=== PATIENT | male | born 1985 | race Caucasian/White ===

== ENCOUNTER 2020-12-21 17:44 | Emergency (ER) | payer OTHER ==
[~2020-12-21 17:44] MED LIST: ACETAMINOPHEN500 M1 PO; BACLOFEN 10MG T10 MG PO; BENTYL10 MG PO; BUSPAR5 MG PO; BUSPIRONE HCL15 MG PO; CIPRO500 MG PO; CLARITIN10 MG PO; FENTANYL 110 MCG/11 PF; FLEXERIL5 MG PO; LACTINEX1 EACH PO; MELATONIN5 M2 PO; MI-ACID80 MG PO; NORCO 5-325 TA1 EACH PO; OXYCODONE HCL10 MG PO; PERCOCET 7.5-31 EACH PO; PHENERGAN25 M1 PO; PHENERGAN25 MG PR; PRILOSEC20 MG PO; PROBIOTIC1 EAC1 PO; PROTONIX 40MG T40 MG PO; SEROQUEL 25MG T25 MG PO; TRAZODONE 50MG50 MG PO; VISTARIL25 MG PO; ZOFRAN4 MG PO
[2020-12-21 19:30] LABS: BASOPHIL 0.8 % (0-2); EOSINOPHIL 0.3 % (0-5); HCT 51.6 % (42.0-52.0); HGB 18.4 g/dl (13.2-18.0); LYMPHOCYTE 10.7 % (15-48); MCH 31.4 pg (25.0-31.0); MCHC 35.7 g/dL (32.0-36.0); MCV 88.1 fL (78.0-100.0); MONOCYTE 10.1 % (0-12); MPV 9.1 fL (6.0-9.5); NEUTROPHIL 77.4 % (41-80); NRBC 0; PLT 629 K/uL (150-400); RBC 5.86 M/uL (4.70-6.00); RDW 13.6 % (11.5-14.0); WBC 21.1 K/uL (4.0-10.5)
[2020-12-21 19:42] LABS: ALBUMIN 4.2 g/dL (3.4-5.0); BILIRUBIN - TOTAL 0.7 mg/dL (0.2-1.0); BUN/CREAT RATIO (CALC) 31.7 RATIO; CREATININE 1.64 mg/dL (0.67-1.17); GLOBULIN (CALCULATION) 4.4 g/dL; TOTAL PROTEIN 8.6 g/dL (6.4-8.2)
[2020-12-21 19:45] LABS: POTASSIUM 1.8 mmol/L (3.5-5.1)
[2020-12-21 20:14] LABS: LACTIC ACID 5.4 mmol/L (0.4-1.9)
[2020-12-21 20:34] LABS: CORONAVIRUS 2019 SARS-COV-2 NEGATIVE (NEGATIVE); INFLUENZA A NAA NEGATIVE (NEGATIVE)
[2020-12-21 21:35] LABS: BILIRUBIN NEGATIVE (NEGATIVE); BLOOD NEGATIVE Ery/uL (NEGATIVE); CLARITY CLEAR (CLEAR); COLOR YELLOW (YELLOW); GLUCOSE (U) TRACE mg/dL (NORMAL); LEUKOCYTES NEGATIVE Leu/uL (NEGATIVE); NITRITE NEGATIVE (NEGATIVE); PROTEIN TRACE (LOW) mg/dL (NEGATIVE); UROBILINOGEN 0.2 mg/dL (0.2-1.0); pH 5.5 (5.0-9.0)
[2020-12-21 21:38] LABS: SQUAMOUS EPITHELIAL CELLS RARE
== END 2020-12-22 04:49 | disposition other institution (70) ==
LOC: FER 17:44
PROVIDERS: Emergency Medicine
DX: R10.84 Generalized abdominal pain (principal); E87.6 Hypokalemia; D72.829 Elevated white blood cell count, unspecified; M54.9 Dorsalgia, unspecified; G89.29 Other chronic pain; J45.909 Unspecified asthma, uncomplicated; F17.210 Nicotine dependence, cigarettes, uncomplicated; Z88.8 Allergy status to other drugs, medicaments and biological substances; Z79.891 Long term (current) use of opiate analgesic; Z20.822 Contact with and (suspected) exposure to COVID-19
CPT/HCPCS: 36415; 71045; 80053; 81001; 83605; 83690; 85025; 87040; J2060; J2270; J2405; J2543; J3480; J7030; Q9967; U0002

== ENCOUNTER 2021-03-08 13:03 | Emergency (ER) | payer OTHER ==
[2021-03-08 13:41] LABS: BASOPHIL 0.9 % (0-2); EOSINOPHIL 1.6 % (0-5); HCT 46.2 % (42.0-52.0); HGB 16.2 g/dl (13.2-18.0); LYMPHOCYTE 17.7 % (15-48); MCH 32.8 pg (25.0-31.0); MCHC 35.1 g/dL (32.0-36.0); MCV 93.5 fL (78.0-100.0); MONOCYTE 8.9 % (0-12); MPV 8.9 fL (6.0-9.5); NEUTROPHIL 70.4 % (41-80); NRBC 0; PLT 545 K/uL (150-400); RBC 4.94 M/uL (4.70-6.00); RDW 14.2 % (11.5-14.0); WBC 20.3 K/uL (4.0-10.5)
[2021-03-08 14:05] LABS: BILIRUBIN - TOTAL 0.4 mg/dL (0.2-1.0); CREATININE 0.85 mg/dL (0.67-1.17); GLOBULIN (CALCULATION) 3.4 g/dL; POTASSIUM 3.4 mmol/L (3.5-5.1); TOTAL PROTEIN 7.4 g/dL (6.4-8.2)
[2021-03-08 14:11] LABS: LACTIC ACID 1.6 mmol/L (0.4-1.9)
[2021-03-08 14:41] LABS: BILIRUBIN NEGATIVE (NEGATIVE); BLOOD NEGATIVE Ery/uL (NEGATIVE); CLARITY HAZY (CLEAR); COLOR YELLOW (YELLOW); GLUCOSE (U) NORMAL (NORMAL); LEUKOCYTES NEGATIVE Leu/uL (NEGATIVE); NITRITE NEGATIVE (NEGATIVE); PROTEIN NEGATIVE (NEGATIVE); SPECIFIC GRAVITY 1.015 (1.001-1.030); UROBILINOGEN 0.2 mg/dL (0.2-1.0)
== END 2021-03-08 23:39 | disposition left against medical advice (07) ==
LOC: FER 13:03
PROVIDERS: Nurse Practitioner Family
DX: K29.70 Gastritis, unspecified, without bleeding (principal); K86.3 Pseudocyst of pancreas; I10 Essential (primary) hypertension; J45.909 Unspecified asthma, uncomplicated; F17.210 Nicotine dependence, cigarettes, uncomplicated; Z87.19 Personal history of other diseases of the digestive system; Z88.8 Allergy status to other drugs, medicaments and biological substances; Z88.5 Allergy status to narcotic agent; Z53.8 Procedure and treatment not carried out for other reasons; Z20.822 Contact with and (suspected) exposure to COVID-19
CPT/HCPCS: 36415; 80053; 81003; 82150; 83605; 83690; 84145; 85025; 87040; 93005; C9113; J1170; J2405; J2543; J7030; Q9967; U0002

== ENCOUNTER 2021-03-10 14:42 | Emergency (ER) | payer OTHER ==
[2021-03-10 15:46] LABS: BILIRUBIN NEGATIVE (NEGATIVE); BLOOD NEGATIVE Ery/uL (NEGATIVE); CLARITY CLEAR (CLEAR); COLOR YELLOW (YELLOW); GLUCOSE (U) NORMAL (NORMAL); LEUKOCYTES NEGATIVE Leu/uL (NEGATIVE); NITRITE NEGATIVE (NEGATIVE); PROTEIN NEGATIVE (NEGATIVE); SPECIFIC GRAVITY <=1.005 (1.001-1.030); UROBILINOGEN 0.2 mg/dL (0.2-1.0); pH 6.5 (5.0-9.0)
[2021-03-10 15:46] LABS: BASOPHIL 1.4 % (0-2); EOSINOPHIL 3.9 % (0-5); HCT 43.5 % (42.0-52.0); HGB 15.2 g/dl (13.2-18.0); LYMPHOCYTE 24.1 % (15-48); MCH 33.1 pg (25.0-31.0); MCHC 34.9 g/dL (32.0-36.0); MCV 94.8 fL (78.0-100.0); MONOCYTE 9.6 % (0-12); NEUTROPHIL 60.7 % (41-80); NRBC 0; PLT 540 K/uL (150-400); RBC 4.59 M/uL (4.70-6.00); RDW 13.8 % (11.5-14.0)
[2021-03-10 16:28] LABS: ALBUMIN 3.7 g/dL (3.4-5.0); BILIRUBIN - TOTAL 0.4 mg/dL (0.2-1.0); BUN/CREAT RATIO (CALC) 12.9 RATIO; CREATININE 0.93 mg/dL (0.67-1.17); GLOBULIN (CALCULATION) 3.7 g/dL; LACTIC ACID 0.9 mmol/L (0.4-1.9); POTASSIUM 2.9 mmol/L (3.5-5.1); TOTAL PROTEIN 7.4 g/dL (6.4-8.2)
[2021-03-11 22:26] LABS: BASOPHIL 1.1 % (0-2); HCT 39.3 % (42.0-52.0); HGB 13.6 g/dl (13.2-18.0); LYMPHOCYTE 28.9 % (15-48); MCH 33.3 pg (25.0-31.0); MCHC 34.6 g/dL (32.0-36.0); MCV 96.3 fL (78.0-100.0); MONOCYTE 8.4 % (0-12); MPV 8.9 fL (6.0-9.5); NEUTROPHIL 57.4 % (41-80); NRBC 0; PLT 472 K/uL (150-400); RBC 4.08 M/uL (4.70-6.00); RDW 13.7 % (11.5-14.0); WBC 13.2 K/uL (4.0-10.5)
[2021-03-11 22:47] LABS: ALBUMIN 3.5 g/dL (3.4-5.0); BILIRUBIN - TOTAL 0.5 mg/dL (0.2-1.0); BUN/CREAT RATIO (CALC) 10.7 RATIO; CREATININE 0.84 mg/dL (0.67-1.17); GLOBULIN (CALCULATION) 3.2 g/dL; POTASSIUM 3.8 mmol/L (3.5-5.1); TOTAL PROTEIN 6.7 g/dL (6.4-8.2)
[2021-03-11 22:55] LABS: LACTIC ACID 0.7 mmol/L (0.4-1.9)
[2021-03-12 09:44] LABS: EOSINOPHIL 3.9 % (0-5); HCT 37.7 % (42.0-52.0); HGB 12.7 g/dl (13.2-18.0); LYMPHOCYTE 29.1 % (15-48); MCH 32.6 pg (25.0-31.0); MCHC 33.7 g/dL (32.0-36.0); MCV 96.7 fL (78.0-100.0); MONOCYTE 9.6 % (0-12); MPV 8.9 fL (6.0-9.5); NEUTROPHIL 56.1 % (41-80); NRBC 0; PLT 475 K/uL (150-400); RDW 13.8 % (11.5-14.0); WBC 14.4 K/uL (4.0-10.5)
[2021-03-12 10:02] LABS: ALBUMIN 3.3 g/dL (3.4-5.0); BILIRUBIN - TOTAL 0.3 mg/dL (0.2-1.0); BUN/CREAT RATIO (CALC) 13.8 RATIO; CREATININE 0.8 mg/dL (0.67-1.17); POTASSIUM 4.2 mmol/L (3.5-5.1); TOTAL PROTEIN 6.3 g/dL (6.4-8.2)
[2021-03-12 10:09] LABS: LACTIC ACID 1.5 mmol/L (0.4-1.9)
== END 2021-03-13 12:00 | disposition other institution (70) ==
LOC: FER 14:42
PROVIDERS: Emergency Medicine; Emergency Medicine Emergency Medical Services
DX: K86.1 Other chronic pancreatitis (principal); K29.70 Gastritis, unspecified, without bleeding; E87.6 Hypokalemia; F17.200 Nicotine dependence, unspecified, uncomplicated; Z88.8 Allergy status to other drugs, medicaments and biological substances; Z88.5 Allergy status to narcotic agent
CPT/HCPCS: 36415; 80053; 81003; 82150; 83605; 83690; 84145; 85025; 87040; 93005; C9113; J0692; J1170; J1885; J2405; J3010; J3480; J7030; J7050; J7120

== ENCOUNTER 2021-09-08 16:03 | Emergency (ER) | payer OTHER ==
[2021-09-08 17:12] LABS: BASOPHIL 1.1 % (0-2); EOSINOPHIL 1.8 % (0-5); HCT 46.8 % (42.0-52.0); HGB 16.4 g/dl (13.2-18.0); LYMPHOCYTE 20.8 % (15-48); MCH 32.5 pg (25.0-31.0); MCV 92.7 fL (78.0-100.0); MONOCYTE 11.7 % (0-12); MPV 9.6 fL (6.0-9.5); NEUTROPHIL 64.2 % (41-80); NRBC 0; PLT 403 K/uL (150-400); RBC 5.05 M/uL (4.70-6.00); RDW 14.4 % (11.5-14.0); WBC 16.5 K/uL (4.0-10.5)
[2021-09-08 17:17] LABS: BILIRUBIN 2+ mg/dL (NEGATIVE); BLOOD NEGATIVE Ery/uL (NEGATIVE); CLARITY CLEAR (CLEAR); COLOR YELLOW (YELLOW); GLUCOSE (U) NORMAL (NORMAL); LEUKOCYTES NEGATIVE Leu/uL (NEGATIVE); NITRITE NEGATIVE (NEGATIVE); PROTEIN NEGATIVE (NEGATIVE); UROBILINOGEN 0.2 mg/dL (0.2-1.0)
[2021-09-08 17:42] LABS: ALBUMIN 3.2 g/dL (3.4-5.0); BILIRUBIN - TOTAL 0.6 mg/dL (0.2-1.0); BUN/CREAT RATIO (CALC) 13.3 RATIO; CREATININE 0.75 mg/dL (0.67-1.17); GLOBULIN (CALCULATION) 3.5 g/dL; TOTAL PROTEIN 6.7 g/dL (6.4-8.2)
[2021-09-08 18:01] LABS: LACTIC ACID 0.7 mmol/L (0.4-1.9)
[2021-09-08] MEDS ORDERED: POTASSIUM20 MEQ/11 PO (19:49)
== END 2021-09-08 20:49 | disposition home or self-care (01) ==
LOC: FER 16:03
PROVIDERS: Nurse Practitioner Family
DX: K94.13 Enterostomy malfunction (principal); E87.6 Hypokalemia; R10.9 Unspecified abdominal pain; Z88.6 Allergy status to analgesic agent; Z88.8 Allergy status to other drugs, medicaments and biological substances
CPT/HCPCS: 36415; 80053; 81003; 82150; 83605; 83690; 84145; 85025; 87040; 87070; 87077; 87186; 87205; J1170; J2405; J3480; J7030; Q9967